=== PATIENT | male | born 1995 | race Caucasian/White ===

== ENCOUNTER 2025-02-08 00:25 | Emergency (ER) | payer OTHER ==
[~2025-02-08] VITALS: Ht 177.8 cm; Wt 88.6 kg
[2025-02-08 00:30] VITALS: BP 135/88; PULSE 105; RESP 17; TEMP 98.3; O2SAT 98
[2025-02-08 01:07] LABS: COVID AG,FIA SOURCE NASAL SWAB
[2025-02-08 01:10] LABS: PLATELET COUNT (AUTO) 381 K/uL (150-450); RED BLOOD CELL COUNT(AUTO) 5.28 MIL/uL (4.50-5.90); RED CELL DISTRIBUTION WIDTH 14.2 % (11.5-14.5); WHITE BLOOD COUNT (AUTO) 10.1 K/uL (4.5-11.0)
[2025-02-08 01:17] LABS: SARS-COV2 (COVID) ANTIGEN,FIA Negative (Negative)
[2025-02-08 01:22] LABS: CALCIUM, TOTAL 8.2 mg/dL (8.8-10.5); CREATININE 0.83 mg/dL (0.60-1.30); GLOMERULAR FILTR. RATE CALC > 60 mL/min (>60); GLUCOSE,RANDOM 120 mg/dL (70-110); SODIUM SERUM 146 mmol/L (136-145); UREA NITROGEN, BLOOD 9 mg/dL (7-18)
== END 2025-02-08 04:03 | disposition home or self-care (01) ==
LOC: EMS 00:29
DX: F10.129 Alcohol abuse with intoxication, unspecified (principal); R45.851 Suicidal ideations; Z20.822 Contact with and (suspected) exposure to COVID-19; Y90.8 Blood alcohol level of 240 mg/100 ml or more
CPT/HCPCS: 99285; 87426; 80048; 85025; 36415; G0480